=== PATIENT | female | born 1995 | race Two or more races ===

== ENCOUNTER 2017-04-26 12:40 | Emergency (ER) | payer SELFPAY ==
[2017-04-26] MEDS ORDERED: DIAZEPAM INJ 10 MG/2 ML DISP.SYRIN IV ONE (13:42)
[2017-04-26] MEDS ORDERED: KETOROLAC TROMETHAMINE INJ/PF 30 MG/1 ML SDV IV ONE (13:42)
--- NOTE | 2017-04-26 13:55 | ER Document Report ---
ED Extremity Problem, Lower - General Chief Complaint: Knee Pain Stated Complaint: RT KNEE PAIN Time Seen by Provider: 04/26/17 13:25 Mode of Arrival: Medic Information source: Patient Notes: 22-year-old female presents to ED via EMS with reports of right knee pain. She states she bent down and her knee locked up and then she fell down. She states this is happened 3 other times but each time she has been able to loosen her muscles up enough to straighten her leg back out but this time she cannot straighten her leg out. She is in tears while I examine her knee. She states the only met the past medical history she has asthma. She states the only time she never injured her knee is when her child she was running to the gym and she landed on both knees. She states it is very painful above and below the back of the knee with some pain to both sides of the knee. I cannot move the knee at all without her screaming in pain. She is not able to move the knee herself. She states there is some tingling in her foot but she does have sensation to her toes her feet she is able to push against resistance with her toes for a very small amount. Pedal pulses are present. I consulted Dr. Padgett due to this history and exam. He has come in and examined the patient also. test will be done first if it is negative she will be given Toradol 10 mg IV and Valium 2 mg IV. Then she will have an x-ray of her needs completed. - HPI Patient complains to provider of: Pain Location: Knee Occurred: Just prior to arrival Where: Home, Indoors Onset/Duration: Sudden Quality of pain: Pressure, Sharp, Throbbing Severity: Moderate Pain Level: 4 Recent injury: No Associated symptoms: Other - Unable to straighten or move her knee Exacerbated by: Movement Relieved by: Rest - Related Data Allergies/Adverse Reactions: No Known Allergies Allergy (Verified 04/26/17 13:41) Past Medical History - General Information source: Patient - Social History Smoking Status: Current Every Day Smoker Cigarette use (# per day): Yes - 1 maybe 2 cigarettes a day Chew tobacco use (# tins/day): No Smoking Education Provided: Yes - 4 minutes Frequency of alcohol use: None Drug Abuse: None Occupation: None Lives with: Spouse/Significant other Family History: CVA, DM. denies: Arthritis, CAD, COPD, Hyperlipidemia, Hypertension, Malignancy, Thyroid Disfunction Patient has suicidal ideation: No Patient has homicidal ideation: No - Past Medical History Cardiac Medical History: Reports: None Pulmonary Medical History: Reports: Hx Asthma EENT Medical History: Reports: None Neurological Medical History: Reports: None Endocrine Medical History: Reports: None Renal/ Medical History: Reports: None Malignancy Medical History: Reports: None GI Medical History: Reports: None Musculoskeltal Medical History: Reports None Skin Medical History: Reports None Psychiatric Medical History: Reports: None Traumatic Medical History: Reports: None Infectious Medical History: Reports: None Surgical Hx: Negative Past Surgical History: Reports: None - Immunizations Immunizations up to date: Yes Hx Diphtheria, Pertussis, Tetanus Vaccination: Yes Review of Systems - Review of Systems Constitutional: No symptoms reported EENT: No symptoms reported Cardiovascular: No symptoms reported Respiratory: No symptoms reported Gastrointestinal: No symptoms reported Genitourinary: No symptoms reported Female Genitourinary: No symptoms reported Musculoskeletal: Joint pain - Severe right knee pain unable to move knee pain behind the knee up the back of the thigh and down the back of the calf Skin: No symptoms reported Hematologic/Lymphatic: No symptoms reported Neurological/Psychological: No symptoms reported -: Yes All other systems reviewed and negative Physical Exam - Vital signs Vitals: Pulse Resp BP Pulse Ox 96 14 107/66 96 04/26/17 12:47 04/26/17 12:47 04/26/17 12:47 04/26/17 12:47 Interpretation: Normal - General General appearance: Appears well, Alert - HEENT Head: Normocephalic, Atraumatic Eyes: Normal Pupils: PERRL - Respiratory Respiratory status: No respiratory distress Chest status: Nontender Breath sounds: Normal Chest palpation: Normal - Cardiovascular Rhythm: Regular Heart sounds: Normal auscultation Murmur: No - Abdominal Inspection: Normal Distension: No distension Bowel sounds: Normal Tenderness: Nontender Organomegaly: No organomegaly - Back Back: Normal, Nontender - Extremities General upper extremity: Normal inspection, Nontender, Normal color, Normal ROM , Normal temperature General lower extremity: Normal temperature. No: Tressa's sign Knee: Tender, Ecchymosis, Pain with ROM, Tender joint line, Unable to bear weight. No: Abrasion, Deformity, Dislocation, Drawer's test instability, Instability, Joint effusion Calf: Ecchymosis - Neurological Neuro grossly intact: Yes Cognition: Normal Orientation: AAOx4 Goldie Coma Scale Eye Opening: Spontaneous Goldie Coma Scale Verbal: Oriented Drumright Coma Scale Motor: Obeys Commands Goldie Coma Scale Total: 15 Speech: Normal Motor strength normal: LUE, RUE, LLE, RLE Sensory: Normal - Psychological Associated symptoms: Normal affect, Normal mood - Skin Skin Temperature: Warm Skin Moisture: Dry Skin Color: Normal Course - Re-evaluation Re-evalutation: 04/26/17 22:07 Dr. Padgett was consulted multiple times during this patient's stay here due to the locked knee on the right side. Patient was treated with Toradol and Valium at first with minimal relief. She was later given morphine. She was x-ray was completed which was negative no acute changes. Patient was informed of the results of the x-ray and when she went to lift her head she got a little dizzy. Patient was treated with a liter of fluids then after she was feeling more able to sit up vital signs were rechecked. Vital signs were stable. Patient was discharged home with instructions to follow-up with orthopedics to have her knee examined. - Vital Signs Vital signs: Temp Pulse Resp BP Pulse Ox 98.9 F 72 15 111/56 L 100 04/26/17 12:50 04/26/17 18:42 04/26/17 18:42 04/26/17 18:42 04/26/17 18:42 - Laboratory Result Diagrams: 04/26/17 13:52 - Diagnostic Test Radiology reviewed: Image reviewed, Reports reviewed Discharge - Discharge Clinical Impression: Knee pain, right Qualifiers: Chronicity: unspecified Qualified Code(s): M25.561 - Pain in right knee Condition: Stable Disposition: HOME, SELF-CARE Additional Instructions: You were seen today for severe pain in your right knee. You stated you were not able to straighten her knee out after you that your knee. You stated this is happened in the past this is the fourth time which her knee has locked up. This is the first time you have had to come to the emergency room for this condition. Benzodiazepines You have been given a benzodiazepine medication. Examples of this type of medicine include Valium, Xanax, Librium, Ativan, and Halcion. Benzodiazepines have many uses. Medications of this type are used for insomnia, anxiety, muscle spasms, seizures, and drug and alcohol withdrawal. You may become very drowsy when you first take the medication. You should not drive or operate machinery while under its effects. Do not combine the medication with alcohol, or with any other medication without talking to your doctor. Do not take if without specific instruction from your glue mounter operator. Some benzodiazepines may have harmful interactions with oral antifungal medicines such as ketoconazole, itraconazole, and nefazodone. If you are taking an antifungal medicine, discuss this with your doctor before taking benzodiazepines. Toradol Injection You have been given an injection of ketorolac tromethamine (Toradol). This is an excellent, safe drug for pain control. It also has potent antiinflammatory action. You should have significant pain relief within about one hour. Toradol is not addicting and is non-sedating. It does not interfere with driving or work. Call or return if you develop itching, hives, shortness of breath, or rash. Pain Medication Injection You have received an injection of a pain medication. You should experience significant pain relief within 45 minutes. This drug is a narcotic - - it will impair your judgement, slow your reaction time and make you sleepy ( as well as relieve your pain). Narcotics also can cause nausea. You should not drive, work with machinery, or perform any task requiring mental alertness until all effects of the medication are gone -- six to eight hours. Do not take any alcohol, or sedatives, and do not take any other medication without checking with your physician. Knee Exercise Program It's important to strengthen the muscles around the knee. This protects the injured area and stabilizes a knee that's been loosened by ligament injury. EARLY - Even when motion of the knee is painful (even when wearing a splint ), you can begin isometric "quads" exercises. While sitting, hold the knee out, and contract the muscles to stiffen it. It shouldn't be straightened all the way -- stiffen it in a slightly-bent position. Lift the leg and draw a "T" with your foot, up to 100 times. When it becomes easy, add a weight on your foot. LATE - When the doctor advises you, you can begin moving the knee against resistance. The front muscles (quadriceps) are most important. While sitting at a [employer], straighten the knee forcefully while pushing a weight up with your ankle. Start with five to 10 pounds. Do 10 to 20 repetitions, increasing the weight as tolerated. Don't use more weight than is comfortable! Over a few weeks, work up to 35 to 50 pounds. Athletes should try to reach 70 to 90 pounds. Intravenous (IV) Fluids As part of your care today, you received intravenous (IV) fluids. IV fluids are administered to patients who are dehydrated or to those who have certain chemical (electrolyte) abnormalities that need correcting. FOLLOW-UP CARE: If you have been referred to a physician for follow-up care, call the physician s office for an appointment as you were instructed or within the next two days. If you experience worsening or a significant change in your symptoms, notify the physician immediately or return to the Emergency Department at any time for re-evaluation. Referrals: RADHA CLARK MD [ACTIVE STAFF] - Follow up as needed
[2017-04-26 14:22] LABS: ALANINE AMINOTRANSFERASE 12 U/L (9-52); ALBUMIN 4.9 g/dL (3.5-5.0); ALKALINE PHOSPHATASE 75 U/L (38-126); ANION GAP 11 (5-19); ASPARTATE AMINO TRANSFERASE 18 U/L (14-36); BILIRUBIN,DIRECT 0.3 mg/dL (0.0-0.4); BLOOD UREA NITROGEN 12 mg/dL (7-20); CALCIUM 9.9 mg/dL (8.4-10.2); CARBON DIOXIDE 26 mmol/L (22-30); CHLORIDE 106 mmol/L (98-107); CREATINE KINASE 48 U/L (30-135); GLUCOSE 104 mg/dL (75-110); SODIUM 142.9 mmol/L (137-145); TOTAL PROTEIN 7.9 g/dL (6.3-8.2)
--- NOTE | 2017-04-26 15:30 | RADIOLOGY REPORT (SQ) ---
EXAM DESCRIPTION: KNEE RIGHT 2 VIEWS COMPLETED DATE/TIME: 04/26/2017 3:21 pm REASON FOR STUDY: pain will not move COMPARISON: None. NUMBER OF VIEWS: Two views. TECHNIQUE: AP and lateral radiographic images acquired of the right knee. LIMITATIONS: None. FINDINGS: MINERALIZATION: Normal. BONES: No acute fracture or dislocation. No worrisome bone lesions. JOINT: No effusion. SOFT TISSUES: No soft tissue swelling. No radio-opaque foreign body. OTHER: No other significant finding. IMPRESSION: NEGATIVE STUDY OF THE RIGHT KNEE. NO RADIOGRAPHIC EVIDENCE OF ACUTE INJURY. TECHNICAL DOCUMENTATION: JOB ID: [id number] [employer]- All Rights Reserved Reading location - IP/workstation name: [email or web address]
[2017-04-26] MEDS ORDERED: MORPHINE SULFATE 10 MG/ML INJ IV ONE (16:05)
[2017-04-26] MEDS ORDERED: NORMAL SALINE 1000 ML 1,000 ML IV ONE (17:37)
[2017-04-26 18:44] VITALS: BP 111/56
== END 2017-04-26 18:42 | disposition home or self-care (01) ==
LOC: ER 12:40
DX: M25.561 Pain in right knee (principal); W18.39XA Other fall on same level, initial encounter; Y92.009 Unspecified place in unspecified non-institutional (private) residence as the place of occurrence of the external cause; R42 Dizziness and giddiness; R20.2 Paresthesia of skin; J45.909 Unspecified asthma, uncomplicated; F17.210 Nicotine dependence, cigarettes, uncomplicated; Z71.6 Tobacco abuse counseling; Z87.828 Personal history of other (healed) physical injury and trauma
CPT/HCPCS: 99406; 99284; 96361; 96374; 96375; 36415; 82550; 84703; 80053; 73560; J3360; J1885; J2270; J7030

== ENCOUNTER → 2018-05-17 | Outpatient (CLI) | payer SELFPAY ==
--- NOTE | 2018-05-17 17:14 | RADIOLOGY REPORT (SQ) ---
EXAM DESCRIPTION: U/S [id number] TRNABD 1GES W/ODOP COMPLETED DATE/TIME: 05/17/2018 4:56 pm REASON FOR STUDY: Z34.01 ENCNTR FOR SUPRVSN OF NORMAL FIRST PREG, FIRST TRIMESTER Z34.01 ENCNTR FOR SUPRVSN OF NORMAL FIRST PREG, FIRST TRIMES COMPARISON: None. TECHNIQUE: Transabdominal static and realtime grayscale images acquired of the pelvis. Additional se lected spectral and color Doppler images recorded. All images stored on PACs. bHCG: Not applicable. CLINICAL DATES: 13 week 6 day. LIMITATIONS: None. FINDINGS: FETUS: Single Living intrauterine . ULTRASOUND EGA: 9 week 3 day. ULTRASOUND SHERITA: 12/17/2018. EFW: Not applicable less than 20 weeks. CRL: 2.2 cm. FHR: 171 beats per minute. SURVEY: No visualized anomalies. AMNIOTIC FLUID: Adequate amount. PLACENTA: Not yet developed due to early gestation. SUBCHORIONIC BLEED: No. SIZE OF BLEED: Not applicable. UTERUS: No masses. No anomalies. CERVICAL LENGTH: 2.3 cm. Closed. RIGHT ADNEXA: Normal ovary with normal vascular flow. No adnexal free fluid. No adnexal masses. LEFT ADNEXA: Normal ovary with normal vascular flow. No adnexal free fluid. No adnexal masses. FREE FLUID: None. OTHER: No other significant finding. IMPRESSION: LIVING INTRAUTERINE . EGA 9 WEEK 3 DAY. Trimester of : First - 0 to 13 weeks. TECHNICAL DOCUMENTATION: JOB ID: [id number] All Rights Reserved Reading location - IP/workstation name: [email or web address]
== END ==
LOC: RAD 16:23
PROVIDERS: ATTEND Midwife
DX: Z34.01 Encounter for supervision of normal first pregnancy, first trimester (principal)
CPT/HCPCS: 76801

== ENCOUNTER 2018-06-28 18:08 | Emergency (ER) | payer MEDICAID ==
--- NOTE | 2018-06-28 19:08 | ER Document Report ---
ED Medical Screen (RME) - General Chief Complaint: Abdominal Pain Stated Complaint: ABDOMINAL PAIN Time Seen by Provider: 06/28/18 19:00 Primary Care Provider: JESSICA SOMMERS CNM [Primary Care Provider] - Follow up as needed Mode of Arrival: Ambulatory Information source: Patient TRAVEL OUTSIDE OF THE [place] IN LAST 30 DAYS: No - HPI Patient complains to provider of: PELVIC PAIN Notes: 06/28/18 19:06 Patient here with complaints of lower abdominal/pelvic pain. Patient is proximate 15 weeks , G1, P0. States that 2 days ago started having some mild pain that was intermittent the pain has become more constant now. No fevers. She has had nausea, but no vomiting or diarrhea. No dysuria hematuria. No rash. Exam No distress, nontoxic-appearing. Lungs clear and equal throughout. Heart sounds normal. Gravid abdomen with mild lower pelvic tenderness to palpation on limited triage abdominal exam. Plan CBC, CMP, RhoGam work-up, quantitative hCG, UA, ultrasound. An initial examination was made on the patient as part of the triage process, and it was determined a more comprehensive evaluation was necessary. Initial labs were ordered and patient was transferred to another provider in the ED who assumed care and finished evaluation and plan. - Related Data Allergies/Adverse Reactions: No Known Allergies Allergy (Verified 04/26/17 13:41) Past Medical History Pulmonary Medical History: Reports: Hx Asthma Renal/ Medical History: Denies: Hx Peritoneal Dialysis - Immunizations Immunizations up to date: Yes Hx Diphtheria, Pertussis, Tetanus Vaccination: Yes Physical Exam - Vital signs Vitals: Temp Pulse Resp BP Pulse Ox 98.1 F 84 18 124/57 L 100 06/28/18 18:16 06/28/18 18:16 06/28/18 18:16 06/28/18 18:16 06/28/18 18:16 Course - Vital Signs Vital signs: Temp Pulse Resp BP Pulse Ox 98.1 F 84 18 124/57 L 100 06/28/18 18:16 06/28/18 18:16 06/28/18 18:16 06/28/18 18:16 06/28/18 18:16 Doctor's Discharge - Discharge Referrals: JESSICA SOMMERS CNM [Primary Care Provider] - Follow up as needed
[2018-06-28 20:20] LABS: ABSOLUTE BASOPHILS # (AUTO) 0.1 10^3/uL (0.0-0.2); ABSOLUTE EOSINOPHILS # (AUTO) 0.2 10^3/uL (0.0-0.6); ABSOLUTE LYMPHOCYTES (AUTO) 1.4 10^3/uL (0.5-4.7); ABSOLUTE MONOCYTES (AUTO) 0.7 10^3/uL (0.1-1.4); ABSOLUTE NEUT (AUTO) 5.7 10^3/uL (1.7-8.2); BASOPHILS % (AUTO) 0.7 % (0-2); EOSINOPHILS % (AUTO) 2.4 % (0-6); HEMATOCRIT 35.6 % (36.0-47.0); LYMPHOCYTES % (AUTO) 17.4 % (13-45); MEAN CORPUSCULAR HEMOGLOBIN 29.9 pg (27.0-33.4); MEAN CORPUSCULAR HGB CONC 33.6 g/dL (32.0-36.0); MEAN CORPUSCULAR VOLUME 89 fl (80-97); MONOCYTES % (AUTO) 9.3 % (3-13); PLATELET COUNT 268 10^3/uL (150-450); RED CELL DISTRIBUTION WIDTH 14.3 % (11.5-14.0); SEGMENTED NEUTROPHILS % (AUTO) 70.2 % (42-78); TOTAL CELLS COUNTED % (AUTO) 100 %; WHITE BLOOD COUNT 8.1 10^3/uL (4.0-10.5)
[2018-06-28 20:24] LABS: APPEARANCE,URINE CLEAR; BILIRUBIN,URINE NEGATIVE (NEGATIVE); COLOR,URINE COLORLESS; GLUCOSE, URINE NEGATIVE (NEGATIVE); KETONES,URINE NEGATIVE (NEGATIVE); LEUKOCYTE ESTERASE,URINE NEGATIVE (NEGATIVE); NITRITE,URINE NEGATIVE (NEGATIVE); PROTEIN,URINE NEGATIVE (NEGATIVE); URINE SPECIFIC GRAVITY 1.003; UROBILINOGEN,URINE NEGATIVE mg/dL (<2.0)
[2018-06-28 20:31] LABS: ALANINE AMINOTRANSFERASE 14 U/L (9-52); ALBUMIN 3.9 g/dL (3.5-5.0); ALKALINE PHOSPHATASE 81 U/L (38-126); ANION GAP 10 (5-19); ASPARTATE AMINO TRANSFERASE 19 U/L (14-36); BILIRUBIN,DIRECT 0.2 mg/dL (0.0-0.4); BILIRUBIN,TOTAL 0.4 mg/dL (0.2-1.3); BLOOD UREA NITROGEN 7 mg/dL (7-20); CALCIUM 9.3 mg/dL (8.4-10.2); CARBON DIOXIDE 25 mmol/L (22-30); CHLORIDE 101 mmol/L (98-107); GLUCOSE 83 mg/dL (75-110); SODIUM 135.8 mmol/L (137-145); TOTAL PROTEIN 6.8 g/dL (6.3-8.2)
[2018-06-28 21:51] LABS: CHLAM PCR NOT DETECTED (NOT DETECT); GON PCR NOT DETECTED (NOT DETECT)
--- NOTE | 2018-06-28 22:37 | RADIOLOGY REPORT (SQ) ---
EXAM DESCRIPTION: US FOLLOW UP COMPLETED DATE/TME: 06/28/2018 19:05 CLINICAL HISTORY: 23 years, Female, PELVIS PAIN COMPARISON: Prior study from 05/17/2018 TECHNIQUE: Transabdominal ultrasound of the pelvis was performed. Color Doppler images were also obtained of the ovaries and placenta. LIMITATIONS: None FINDINGS: Cervix is closed, measuring 2.3 cm in length. A single intrauterine is identified. The placenta is posterior in location. presentation is currently variable. Measurements are as follows: heart rate: 128 bpm Femoral length: 1.49 cm Abdominal circumference: 8.42 cm Biparietal diameter: 2.95 cm Head circumference: 10.95 cm Largest vertical pocket of amniotic fluid: 4.3 cm Estimated gestational age is 15 weeks and 0 days; estimated date of confinement is 12/20/2018 Right ovary measures 2.8 x 1.9 x 2.4 cm in size. It demonstrates normal echogenicity and normal low resistance arterial waveforms as well as venous flow. Left ovary measures 2.9 x 1.6 cm in size. It demonstrates normal echogenicity and normal low resistance arterial waveforms/venous flow as well. IMPRESSION: Single viable intrauterine , as above. No acute findings identified. copyright 2010 [employer]- All Rights Reserved
[2018-06-28] MEDS ORDERED: OXYCODONE-ACETAMINOPHEN 5-325 MG TABLET PO ONE (23:47)
--- NOTE | 2018-06-28 23:51 | ER Document Report ---
ED General - General Chief Complaint: Abdominal Pain Stated Complaint: ABDOMINAL PAIN Time Seen by Provider: 06/28/18 19:00 Primary Care Provider: JESSICA SOMMERS CNM [NO LOCAL MD] - Follow up as needed Mode of Arrival: Ambulatory Information source: Patient, [facility] Records Notes: 23-year-old female G1, P0 at 15 weeks gestation presents with 2 days of abdominal cramping. Patient describes a cramping and is located in the right and left lower quadrant. She describes as intermittent without radiation. Patient has had nausea without associated vomiting. She denies any vaginal bleeding, dysuria, vaginal discharge, fever, chills, recent illness, trauma to the abdomen. Patient has been under the care of [facility]. TRAVEL OUTSIDE OF THE [place] IN LAST 30 DAYS: No - HPI Onset: Other Onset/Duration: Intermittent Quality of pain: Cramping Severity: Mild Associated symptoms: Nausea. denies: Chest pain, Diarrhea, Fever, Vomiting, Shortness of breath, Sweating Exacerbated by: Denies Relieved by: Denies Similar symptoms previously: No Recently seen / treated by doctor: Yes - Related Data Allergies/Adverse Reactions: No Known Allergies Allergy (Verified 04/26/17 13:41) Past Medical History - General Information source: Patient - Social History Smoking Status: Former Smoker Frequency of alcohol use: None Drug Abuse: None Lives with: Family Family History: CVA, DM. denies: Arthritis, CAD, COPD, Hyperlipidemia, Hypertension, Malignancy, Thyroid Disfunction Patient has suicidal ideation: No Patient has homicidal ideation: No Pulmonary Medical History: Reports: Hx Asthma Renal/ Medical History: Denies: Hx Peritoneal Dialysis - Immunizations Immunizations up to date: Yes Hx Diphtheria, Pertussis, Tetanus Vaccination: Yes Review of Systems - Review of Systems Notes: REVIEW OF SYSTEMS: CONSTITUTIONAL : Denies fever, chills, or sweats. Denies recent illness. Denies weight loss, recent hospitalizations. EENT: Denies visual changes, eye pain. Denies sore throat, oral lesions, difficulty swallowing. CARDIOVASCULAR: Denies chest pain. Denies palpitations. Denies lower extremity edema. RESPIRATORY: Denies cough. Denies shortness of breath, wheezing. GASTROINTESTINAL: Denies abdominal distention. Denies vomiting, or diarrhea. Denies blood in vomitus, stools, or per rectum. Denies black, tarry stools. Denies constipation. GENITOURINARY: Denies difficulty urinating, painful urination, frequency, blood in urine, or vaginal discharge. MUSCULOSKELETAL: Denies back or neck pain or stiffness. Denies joint pain or swelling. SKIN: Denies rash, lesions or sores. HEMATOLOGIC : Denies easy bruising or bleeding. LYMPHATIC: Denies swollen glands. NEUROLOGICAL: Denies confusion or altered mental status. Denies loss of consciousness. Denies dizziness or lightheadedness. Denies headache. Denies weakness or paralysis. Denies problems difficulty with ambulation, slurred speech. Denies sensory loss, numbness, or tingling. Denies seizures. PSYCHIATRIC: Denies anxiety or stress. Denies depression, suicidal ideation, or homicidal ideation. Denies visual or auditory hallucinations. Physical Exam - Vital signs Vitals: Temp Pulse Resp BP Pulse Ox 98.1 F 84 18 124/57 L 100 06/28/18 18:16 06/28/18 18:16 06/28/18 18:16 06/28/18 18:16 06/28/18 18:16 - Notes Notes: PHYSICAL EXAMINATION: GENERAL: Well-appearing, well-nourished and in no acute distress. HEAD: Atraumatic, normocephalic. EYES: Pupils equal round and reactive to light, extraocular movements intact, conjunctiva are normal. ENT: Nares patent, oropharynx clear without exudates. Moist mucous membranes. NECK: Normal range of motion, supple without lymphadenopathy LUNGS: Breath sounds clear to auscultation bilaterally and equal. No wheezes rales or rhonchi. HEART: Regular rate and rhythm without murmurs ABDOMEN: Soft, mild tenderness with palpation in the right and left lower quadrant. Nondistended abdomen. No guarding, no rebound. No masses appreciated. Female : deferred Musculoskeletal: Normal range of motion, no pitting or edema. No cyanosis. NEUROLOGICAL: Cranial nerves grossly intact. Normal speech, normal gait. Normal sensory, motor exams PSYCH: Normal mood, normal affect. SKIN: Warm, Dry, normal turgor, no rashes or lesions noted. Course - Re-evaluation Re-evalutation: 06/29/18 18:22 Laboratory 06/28/18 06/28/18 06/28/18 19:56 19:56 19:56 WBC 8.1 RBC 4.00 Hgb 12.0 Hct 35.6 L MCV 89 MCH 29.9 MCHC 33.6 RDW 14.3 H Plt Count 268 Seg Neutrophils % 70.2 Lymphocytes % 17.4 Monocytes % 9.3 Eosinophils % 2.4 Basophils % 0.7 Absolute Neutrophils 5.7 Absolute Lymphocytes 1.4 Absolute Monocytes 0.7 Absolute Eosinophils 0.2 Absolute Basophils 0.1 Sodium 135.8 L Potassium 4.0 Chloride 101 Carbon Dioxide 25 Anion Gap 10 BUN 7 Creatinine 0.40 L Est GFR ( Amer) > 60 Est GFR (Non-Af Amer) > 60 Glucose 83 Calcium 9.3 Total Bilirubin 0.4 Direct Bilirubin 0.2 Neonat Total Bilirubin Not Reportable Neonat Direct Bilirubin Not Reportable Neonat Indirect Bili Not Reportable AST 19 ALT 14 Alkaline Phosphatase 81 Total Protein 6.8 Albumin 3.9 Beta HCG, Quant 01298.00 H Total Beta HCG POSITIVE Urine Color Urine Appearance Urine pH Ur Specific Raymond Urine Protein Urine Glucose (UA) Urine Ketones Urine Blood Urine Nitrite Urine Bilirubin Urine Urobilinogen Ur Leukocyte Esterase Urine WBC (Auto) Urine RBC (Auto) Squamous Epi Cells Auto Urine Mucus (Auto) Urine Ascorbic Acid Chlamydia DNA (PCR) N.gonorrhoeae DNA (PCR) Blood Type O POSITIVE Rhogam Indicated RHOGAM NOT INDICATED 06/28/18 06/28/18 19:56 19:56 WBC RBC Hgb Hct MCV MCH MCHC RDW Plt Count Seg Neutrophils % Lymphocytes % Monocytes % Eosinophils % Basophils % Absolute Neutrophils Absolute Lymphocytes Absolute Monocytes Absolute Eosinophils Absolute Basophils Sodium Potassium Chloride Carbon Dioxide Anion Gap BUN Creatinine Est GFR ( Amer) Est GFR (Non-Af Amer) Glucose Calcium Total Bilirubin Direct Bilirubin Neonat Total Bilirubin Neonat Direct Bilirubin Neonat Indirect Bili AST ALT Alkaline Phosphatase Total Protein Albumin Beta HCG, Quant Total Beta HCG Urine Color COLORLESS Urine Appearance CLEAR Urine pH 7.0 Ur Specific Raymond 1.003 Urine Protein NEGATIVE Urine Glucose (UA) NEGATIVE Urine Ketones NEGATIVE Urine Blood NEGATIVE Urine Nitrite NEGATIVE Urine Bilirubin NEGATIVE Urine Urobilinogen NEGATIVE Ur Leukocyte Esterase NEGATIVE Urine WBC (Auto) 2 Urine RBC (Auto) 0 Squamous Epi Cells Auto 1 Urine Mucus (Auto) RARE Urine Ascorbic Acid NEGATIVE Chlamydia DNA (PCR) NOT DETECTED N.gonorrhoeae DNA (PCR) NOT DETECTED Blood Type Rhogam Indicated Obstetrics Ultrasound 06/28/18 19:05 IMPRESSION: Single viable intrauterine , as above. No acute findings identified. copyright 2010 [employer]- All Rights Reserved Temp Pulse Resp BP Pulse Ox 98.5 F 84 16 110/49 L 98 06/28/18 23:52 06/28/18 23:52 06/28/18 23:52 06/28/18 23:52 06/28/18 23:52 23-year-old female presents with complaint of lower abdominal pain. Vital signs reviewed and within normal limits. Patient does not appear toxic or dehydrated. She has a benign abdominal and pelvic exam. Transvaginal ultrasound was obtained and showed a single viable IUP. Gonorrhea and Chlamydia is just as 19 we will ask as is for home is is for not detected. No evidence of urinary tract infection. Patient did take Tylenol earlier today without relief. She did receive one [place] during her ED course. Patient was provided copies of her ultrasound report and advised to return to the emergency department with worsening pain or vaginal bleeding. Patient was evaluated and treated as appropriate for the patient's presenting symptoms and complaint, with consideration of any critical or life threatening conditions that may be associated with their obtained history and exam as noted above. All results were discussed with patient and... Patient provided the opportunity to ask questions, and express concerns. Patient was educated on treatments based on their presumed diagnosis as noted above. At this time we will discharge the patient with return precautions and follow-up recommendations. Verbal discharge instructions given a the bedside. Medication warnings reviewed. Patient is in agreement with this plan and has verbalized understanding of return precautions. After careful consideration I feel that that patient can be safely discharged from the emergency department, they were advised to followup with a primary care physician in 2-3 days. Dictation on this chart was performed using voice recognition software and may result in unintended grammatical, spelling, syntax or errors. - Vital Signs Vital signs: Temp Pulse Resp BP Pulse Ox 98.5 F 84 16 110/49 L 98 06/28/18 23:52 06/28/18 23:52 06/28/18 23:52 06/28/18 23:52 06/28/18 23:52 - Laboratory Result Diagrams: 06/28/18 19:56 06/28/18 19:56 Laboratory results interpreted by me: 06/28/18 06/28/18 19:56 19:56 Hct 35.6 L RDW 14.3 H Sodium 135.8 L Creatinine 0.40 L Beta HCG, Quant 34801.00 H - Diagnostic Test Radiology reviewed: Image reviewed, Reports reviewed Discharge - Discharge Clinical Impression: Abdominal pain affecting , Round ligament pain Condition: Good Disposition: HOME, SELF-CARE Instructions: Abdominal Pain ([facility]), Observation for Appendicitis ([facility]), Pelvic Pain in ([facility]), Pelvic Pain in and Round Ligament Pain ([facility]) Referrals: JESSICA SOMMERS CNM [NO LOCAL MD] - Follow up as needed
[2018-06-28 23:53] VITALS: BP 110/49
== END 2018-06-29 00:18 | disposition home or self-care (01) ==
LOC: ER 18:08
DX: O26.892 Other specified pregnancy related conditions, second trimester (principal); R10.2 Pelvic and perineal pain; R10.31 Right lower quadrant pain; R10.32 Left lower quadrant pain; R11.0 Nausea; R10.30 Lower abdominal pain, unspecified; R10.9 Unspecified abdominal pain; Z3A.15 15 weeks gestation of pregnancy; Z87.891 Personal history of nicotine dependence
CPT/HCPCS: 36415; 76805; 80053; 81001; 84702; 85025; 86900; 86901; 87491; 87591; 93976; 99284

== ENCOUNTER 2018-10-16 08:00 | Outpatient (CLI) | payer MEDICAID ==
[2018-10-16 08:42] LABS: APPEARANCE,URINE CLEAR; BILIRUBIN,URINE NEGATIVE (NEGATIVE); COLOR,URINE YELLOW; GLUCOSE, URINE NEGATIVE (NEGATIVE); KETONES,URINE NEGATIVE (NEGATIVE); LEUKOCYTE ESTERASE,URINE SMALL (NEGATIVE); NITRITE,URINE NEGATIVE (NEGATIVE); PROTEIN,URINE NEGATIVE (NEGATIVE); UROBILINOGEN,URINE NEGATIVE mg/dL (<2.0)
[2018-10-16 09:07] LABS: URINE AMPHETAMINES SCREEN NEGATIVE; URINE BARBITURATES SCREEN NEGATIVE; URINE BENZODIAZEPINES SCREEN NEGATIVE; URINE COCAINE SCREEN NEGATIVE; URINE MARIJUANA (THC) SCREEN NEGATIVE; URINE METHADONE SCREEN NEGATIVE
[2018-10-16 09:19] LABS: URINE PHENCYCLIDINE SCREEN NEGATIVE
--- NOTE | 2018-10-16 10:36 | RADIOLOGY REPORT (SQ) ---
EXAM DESCRIPTION: U/S OB LIMITED COMPLETED DATE/TIME: 10/16/2018 10:19 am REASON FOR STUDY: cervical length COMPARISON: None. TECHNIQUE: Limited transabdominal grayscale ultrasound for evaluation of specific requested obstetri luis felipe parameters. LIMITATIONS: None. FINDINGS: CERVICAL LENGTH: 2.9 cm. Closed. ANIYAH: 14.6 cm. FHR: 121 beats per minute. PRESENTATION: Cephalic. PLACENTA: Not assessed ANATOMY: Not assessed OTHER: Estimated gestational age is 31 weeks 1 day. IMPRESSION: LIMITED OBSTETRICAL ULTRASOUND WITH MEASURED PARAMETERS DELINEATED ABOVE. Trimester of : Third trimester - 28 weeks to delivery. TECHNICAL DOCUMENTATION: JOB ID: [id number] for; [facility]- All Rights Reserved Reading location - IP/workstation name: [email or web address]
== END 2018-10-16 11:06 | disposition home or self-care (01) ==
LOC: LC 08:00
PROVIDERS: ATTEND Obstetrics & Gynecology
PROC: 4A1HXCZ Monitoring of Products of Conception, Cardiac Rate, External Approach (ICD-10-PCS; principal; 2018-10-16)
DX: Z34.93 Encounter for supervision of normal pregnancy, unspecified, third trimester (principal)
CPT/HCPCS: 76815; 80307; 81001

== ENCOUNTER 2018-11-25 21:46 | Outpatient (CLI) | payer MEDICAID ==
[2018-11-25 22:26] LABS: APPEARANCE,URINE CLEAR; BILIRUBIN,URINE NEGATIVE (NEGATIVE); COLOR,URINE YELLOW; GLUCOSE, URINE NEGATIVE (NEGATIVE); KETONES,URINE 20 mg/dL (NEGATIVE); LEUKOCYTE ESTERASE,URINE NEGATIVE (NEGATIVE); NITRITE,URINE NEGATIVE (NEGATIVE); PROTEIN,URINE NEGATIVE (NEGATIVE); UROBILINOGEN,URINE NEGATIVE mg/dL (<2.0)
[2018-11-25 22:44] LABS: URINE AMPHETAMINES SCREEN NEGATIVE; URINE BARBITURATES SCREEN NEGATIVE; URINE BENZODIAZEPINES SCREEN NEGATIVE; URINE COCAINE SCREEN NEGATIVE; URINE MARIJUANA (THC) SCREEN NEGATIVE; URINE METHADONE SCREEN NEGATIVE; URINE PHENCYCLIDINE SCREEN NEGATIVE
== END 2018-11-26 | disposition home or self-care (01) ==
LOC: LC 21:46
PROVIDERS: ATTEND Obstetrics & Gynecology
PROC: 4A1HXCZ Monitoring of Products of Conception, Cardiac Rate, External Approach (ICD-10-PCS; principal; 2018-11-25)
DX: O47.03 False labor before 37 completed weeks of gestation, third trimester (principal); Z3A.36 36 weeks gestation of pregnancy
CPT/HCPCS: 59025; 80307; 81001

== ENCOUNTER 2018-12-14 14:53 | Outpatient (CLI) | payer MEDICAID ==
--- NOTE | 2018-12-14 15:06 | Non Stress Test Report ---
Non Stress Test Datetime Report Generated by CPN: 12/14/2018 15:06 DEMOGRAPHIC Test Number: 2 EGA NST: 36.6 EGA NST: 31.1 INDICATION Indication for Study: Ordered by Provider Indication for Study: Other Indication for Study (NST) Other: lc VITAL SIGNS Temperature - NST: 98.1 Pulse - NST: 92 RESP - NST: 16 NBPSYS NST: 105 NBPDIA NST: 64 URINE RESULTS Urine Protein, NST: Negative Urine Ketones - NST: Positive Urine Glucose - NST: Negative Urine Blood - NST: Negative MONITORING Monitor Explained: Monitor Explained; Test Explained; Patient Verbalized Understanding Monitor Explained: Monitor Explained; Test Explained; Patient Verbalized Understanding Time on Monitor: 11/25/2018 22:02 Time on Monitor: 10/16/2018 08:47 Time off Monitor: 11/25/2018 23:45 NST Duration: 103 NST INTERVENTIONS NST Interventions: PO Hydration NST Interventions: PO Hydration; Reposition Patient Physician Notified NST: DrJoselyn Mckeon Physician Notified NST: A Gillespie CNM BABY A: [id number] BABY A Movement : Present Movement : Present Contraction Frequency : irreg FHR Baseline : 130 Accelerations : 15X15 Accelerations : 15X15 Decelerations : None Decelerations : None Variability : Moderate 6-25bpm Variability : Moderate 6-25bpm NST Review: Meets Criteria for Reactive NST NST Review: Meets Criteria for Reactive NST NST Review and Verified By : Sky Dixon RN Results: Reactive NST Results: Reactive NST REPORT Report Trigger: Send Report
[2018-12-14 16:02] LABS: APPEARANCE,URINE CLEAR; BILIRUBIN,URINE NEGATIVE (NEGATIVE); COLOR,URINE YELLOW; GLUCOSE, URINE NEGATIVE (NEGATIVE); KETONES,URINE NEGATIVE (NEGATIVE); LEUKOCYTE ESTERASE,URINE NEGATIVE (NEGATIVE); NITRITE,URINE NEGATIVE (NEGATIVE); PROTEIN,URINE NEGATIVE (NEGATIVE); URINE SPECIFIC GRAVITY 1.006; UROBILINOGEN,URINE NEGATIVE mg/dL (<2.0)
[2018-12-14 16:24] LABS: URINE AMPHETAMINES SCREEN NEGATIVE; URINE BARBITURATES SCREEN NEGATIVE; URINE BENZODIAZEPINES SCREEN NEGATIVE; URINE COCAINE SCREEN NEGATIVE; URINE MARIJUANA (THC) SCREEN NEGATIVE; URINE METHADONE SCREEN NEGATIVE; URINE PHENCYCLIDINE SCREEN NEGATIVE
--- NOTE | 2018-12-14 16:41 | Non Stress Test Report ---
Non Stress Test Datetime Report Generated by CPN: 12/14/2018 16:41 DEMOGRAPHIC EGA NST: 39.4 INDICATION Indication for Study: Other - Please document "Reason for NST Other" in box below. Indication for Study (NST) Other: False labor VITAL SIGNS Temperature - NST: 98.4 Pulse - NST: 115 RESP - NST: 18 NBPSYS NST: 102 NBPDIA NST: 61 MONITORING Monitor Explained: Monitor Explained; Test Explained; Patient Verbalized Understanding; Other Time on Monitor: 12/14/2018 15:30 Time off Monitor: 12/14/2018 16:14 NST Duration: 44 NST INTERVENTIONS NST Interventions: PO Hydration; Reposition Patient Physician Notified NST: P Vela CNM BABY A Movement : Present Contraction Frequency : irregular FHR Baseline : 155 Accelerations : 15X15 Decelerations : None Variability : Moderate 6-25bpm NST Review: Meets Criteria for Reactive NST NST Review and Verified By : MARIO Davis Results: Reactive NST REPORT Report Trigger: Send Report
== END 2018-12-14 16:31 | disposition home or self-care (01) ==
LOC: LC 14:53
PROVIDERS: ATTEND Obstetrics & Gynecology Gynecology
PROC: 4A1HXCZ Monitoring of Products of Conception, Cardiac Rate, External Approach (ICD-10-PCS; principal; 2018-12-14)
DX: O47.1 False labor at or after 37 completed weeks of gestation (principal); Z3A.39 39 weeks gestation of pregnancy
CPT/HCPCS: 80307; 81005

== ENCOUNTER 2018-12-19 16:56 | Outpatient (CLI) | payer MEDICAID ==
[2018-12-19 18:09] LABS: APPEARANCE,URINE CLEAR; BILIRUBIN,URINE NEGATIVE (NEGATIVE); COLOR,URINE YELLOW; GLUCOSE, URINE NEGATIVE (NEGATIVE); KETONES,URINE NEGATIVE (NEGATIVE); LEUKOCYTE ESTERASE,URINE NEGATIVE (NEGATIVE); NITRITE,URINE NEGATIVE (NEGATIVE); PROTEIN,URINE NEGATIVE (NEGATIVE); URINE SPECIFIC GRAVITY 1.016
--- NOTE | 2018-12-19 18:21 | Non Stress Test Report ---
Non Stress Test Datetime Report Generated by CPN: 12/19/2018 18:20 DEMOGRAPHIC EGA NST: 40.2 INDICATION Indication for Study (NST) Other: IUP @ 40.2 MONITORING Monitor Explained: Monitor Explained; Test Explained; Patient Verbalized Understanding Time on Monitor: 12/19/2018 17:15 Time off Monitor: 12/19/2018 17:59 NST Duration: 44 NST INTERVENTIONS NST Interventions: None Physician Notified NST: Dr. Jones BABY A: [id number] BABY A Movement : Present Contraction Frequency : 1-5 FHR Baseline : 145 Accelerations : 15X15 Decelerations : None Variability : Moderate 6-25bpm NST Review: Meets Criteria for Reactive NST NST Review and Verified By : MARIO Davis Results: Reactive NST REPORT Report Trigger: Send Report
[2018-12-19 18:27] LABS: URINE AMPHETAMINES SCREEN NEGATIVE; URINE BARBITURATES SCREEN NEGATIVE; URINE BENZODIAZEPINES SCREEN NEGATIVE; URINE COCAINE SCREEN NEGATIVE; URINE MARIJUANA (THC) SCREEN NEGATIVE; URINE METHADONE SCREEN NEGATIVE; URINE PHENCYCLIDINE SCREEN NEGATIVE
== END 2018-12-19 19:13 | disposition home or self-care (01) ==
LOC: LC 16:56
PROVIDERS: ATTEND Obstetrics & Gynecology Gynecology
PROC: 4A1HXCZ Monitoring of Products of Conception, Cardiac Rate, External Approach (ICD-10-PCS; principal; 2018-12-19)
DX: O48.0 Post-term pregnancy (principal); Z3A.40 40 weeks gestation of pregnancy
CPT/HCPCS: 59025; 80307; 81005

== ENCOUNTER 2018-12-23 08:45 | Inpatient (IN) | payer MEDICAID ==
[2018-12-23] MEDS ORDERED: PENICILLIN G-K 5 MILLION UNIT VIAL ONE ×2 (09:33→12:35)
[2018-12-23 09:35] LABS: APPEARANCE,URINE SLIGHTLY-CLOUDY; BILIRUBIN,URINE NEGATIVE (NEGATIVE); COLOR,URINE YELLOW; GLUCOSE, URINE NEGATIVE (NEGATIVE); KETONES,URINE NEGATIVE (NEGATIVE); LEUKOCYTE ESTERASE,URINE TRACE (NEGATIVE); NITRITE,URINE NEGATIVE (NEGATIVE); PROTEIN,URINE NEGATIVE (NEGATIVE); URINE SPECIFIC GRAVITY 1.014; UROBILINOGEN,URINE NEGATIVE mg/dL (<2.0)
--- NOTE | 2018-12-23 10:08 | Admission Physical ---
Datetime Report Generated by CPN: 12/23/2018 10:08 CURRENT ADMISSION Chief Complaint: Uterine Contractions Indication for Induction: Not Applicable Admit Impression : Term, Intrauterine Admit Impression- Other: early labor; advanced cervical dilatation Admit Plan: Admit to Unit; Initiate Labor Augmentation Protocol ALLERGIES Medication Allergies: No Medication Allergies: No Known Allergies (04/26/2017) Latex: No Latex Allergies Food Allergies: no Environmental Allergies: no OBSTETRICAL HISTORY EDC: 12/17/2018 00:00 : 1 Para: 0 Term: 0 : 0 SAB: 0 IAB: 0 Ectopic: 0 Livin Cesareans: 0 VBACs: 0 Multiple Births: 0 Gestational Diabetes: No Rh Sensitization: No Incompetent Cervix: No SO: No Infertility: No ART Treatment: No Uterine Anomaly: No IUGR: No Hx Previous C/S: No Macrosomia: No Hx Loss/Stillborn: No PIH: No Hx : No Placenta Previa/Abruption: No Depression/PP Depression: No PTL/PROM: No Post Hemorrhage: No Current Procedures: Ultrasound Obstetrical History Comments: g1-current SEE RECORDS Alcohol: No Marijuana : No Cocaine: No Other Illicit Drugs: No Cigarettes: Former Smoker. [id number] MEDICAL HISTORY Diabetes: No Blood Transfusion: No Pulmonary Disease (Asthma, TB): Yes Breast Disease: No Hypertension: No Tool Design Checker Surgery: No Heart Disease: No Hosp/Surgery: No Autoimmune Disorder: No Anesthetic Complications: No Kidney Disease: No Abnormal Pap Smear: No Neuro/Epilepsy: No Psychiatric Disorders: Yes Other Medical Diseases: No Hepatitis/Liver Disease: No Significant Family History: No Varicosities/Phlebitis: No Trauma/Violence : No Thyroid Dysfunction: No Medical History Comments: asthma -Albuterol ( G2nneln, anxiety INFECTIOUS HISTORY Gonorrhea: No Genital Herpes: No Chlamydia: No Tuberculosis: No Syphilis: No Hepatitis: No HIV/AIDS Exposure: No Rash or Viral Illness: No HPV: No PHYSICAL EXAM General: Normal HEENT: Normal Neurologic: Normal Thyroid: Normal Heart: Normal Lungs: Normal Breast: Normal Back: Normal Abdomen: Normal Genitourinary Exam: Normal Extremities: Normal DTRs: Normal Pelvic Type: Adequate Vital Signs: Reviewed; Within Normal Limits VAGINAL EXAM Dilatation: 4-5 Effacement: 70 Station: -2 Contraction Comments: irregular MEMBRANES Membranes: Intact FETUS A EGA: 40.6 Monitoring: External US FHR- Baseline: 150s Variability: Moderate 6-25bpm Accelerations: 15X15 FHR Category: Category I Admit Comment: with an IUP at 40.6 presents to L_D c/o contractions. Her cervix has been dilated at 4 cm for a few weeks. She now has some cervical change. She is yadi irregularly. She reports good movement. She is GBS Pos. No co-morbidities. PLANS FOR LABOR AND DELIVERY Labor and Delivery: None Pain Management: Epidural Feeding Preference: Breast Benefit of Breast Feed Discussed: Yes Circumcision: N/A INFORMED CONSENT Signature: with User ID: [email or web address]
[2018-12-23 10:19] LABS: URINE AMPHETAMINES SCREEN NEGATIVE; URINE BARBITURATES SCREEN NEGATIVE; URINE BENZODIAZEPINES SCREEN NEGATIVE; URINE COCAINE SCREEN NEGATIVE; URINE MARIJUANA (THC) SCREEN NEGATIVE; URINE METHADONE SCREEN NEGATIVE; URINE PHENCYCLIDINE SCREEN NEGATIVE
[2018-12-23] MEDS ORDERED: RINGERS SOLUTION,LACTATED 1,000 ML IV PRN (10:35)
[2018-12-23] MEDS ORDERED: PENICILLIN G POTASSIUM 5,000,000 UNIT in DEXTROSE 5%-WATER 100 ML IV ONE (10:35)
[2018-12-23] MEDS ORDERED: RINGERS SOLUTION,LACTATED 1,000 ML IV ONE (10:35)
[2018-12-23] MEDS ORDERED: BUPIVACAINE HCL 0.25 % INJ/PF (2.5 MG/1 ML) 30 ML VIAL ONE (10:43)
[2018-12-23] MEDS ORDERED: EPHEDRINE SULFATE INJ 50 MG/1 ML AMPULE ONE (10:43)
[2018-12-23] MEDS ORDERED: FENTANYL CITRATE INJ/PF 100 MCG/2 ML AMPUL ONE (10:43)
[2018-12-23] MEDS ORDERED: FENTANYL/BUPIVACAINE/NS/PF 300 MCG/150 ML RTUINJ EPI ONE (10:43)
[2018-12-23] MEDS ORDERED: PHENYLEPHRINE HCL INJ/PF 10 MG/1 ML SDV ONE (10:43)
[2018-12-23] MEDS ORDERED: ONDANSETRON HCL INJ/PF 4 MG/2 ML SDV IV ONE (10:54)
[2018-12-23] MEDS ORDERED: ONDANSETRON HCL INJ/PF 4 MG/2 ML SDV ONE (10:55)
[2018-12-23 11:11] LABS: ABSOLUTE LYMPHOCYTES (AUTO) 0.9 10^3/uL (0.5-4.7); ABSOLUTE MONOCYTES (AUTO) 0.9 10^3/uL (0.1-1.4); ABSOLUTE NEUT (AUTO) 10.5 10^3/uL (1.7-8.2); BASOPHILS % (AUTO) 0.3 % (0-2); EOSINOPHILS % (AUTO) 0.2 % (0-6); HEMATOCRIT 32.6 % (36.0-47.0); HEMOGLOBIN 10.9 g/dL (12.0-15.5); LYMPHOCYTES % (AUTO) 7.4 % (13-45); MEAN CORPUSCULAR HEMOGLOBIN 27.8 pg (27.0-33.4); MEAN CORPUSCULAR HGB CONC 33.4 g/dL (32.0-36.0); MEAN CORPUSCULAR VOLUME 83 fl (80-97); MONOCYTES % (AUTO) 7.5 % (3-13); PLATELET COUNT 232 10^3/uL (150-450); RED BLOOD COUNT 3.91 10^6/uL (3.72-5.28); RED CELL DISTRIBUTION WIDTH 14.8 % (11.5-14.0); SEGMENTED NEUTROPHILS % (AUTO) 84.6 % (42-78); TOTAL CELLS COUNTED % (AUTO) 100 %; WHITE BLOOD COUNT 12.4 10^3/uL (4.0-10.5)
[2018-12-23] MEDS ORDERED: OXYTOCIN/NORMAL SALINE 20 UNIT/1,000 ML RTUINJ IV PRN ×2 (12:29→21:43)
[2018-12-23] MEDS ORDERED: OXYTOCIN/NORMAL SALINE 20 UNIT/1,000 ML RTUINJ ONE (12:34)
[2018-12-23] MEDS ORDERED: MISOPROSTOL 0.2 MG TABLET ONE (12:34)
[2018-12-23] MEDS ORDERED: LIDOCAINE 1% INJ-PF (10 MG/ML) 30 ML SDV ONE (12:34)
[2018-12-23] MEDS ORDERED: PENICILLIN G POTASSIUM 2,500,000 UNIT in DEXTROSE 5%-WATER 50 ML IV SCH (14:36)
[2018-12-23] MEDS ORDERED: DIBUCAINE 1% OINTMENT 56 GM TP PRN (21:43)
[2018-12-23] MEDS ORDERED: BENZOCAINE/MENTHOL AEROSOL SPRAY 56 ML TOP PRN (21:43)
[2018-12-23] MEDS ORDERED: DIPH/PERTUSS(ACELL)/TETANUS VAC/PF 0.5 ML SYR (>=10YO) IM PRN (21:43)
[2018-12-23] MEDS ORDERED: ZOLPIDEM TARTRATE 5 MG TABLET PO PRN (21:43)
[2018-12-23] MEDS ORDERED: ACETAMINOPHEN WITH CODEINE #3 TABLET PO PRN (21:43)
--- NOTE | 2018-12-23 22:29 | Warning Signs in Babies ---
VOD Warning Signs Datetime Report Generated by [facility]: 12/23/2018 22:28 VOD#608 -Warning Signs in Babies: Needs to be viewed. (10/16/2018 08:05:Lea Land RN)
--- NOTE | 2018-12-23 22:30 | Delivery Summary ---
Del Sum A-C Datetime Report Generated by CPN: 12/23/2018 22:29 DELIVERY PERSONNEL DELIVERY PERSONNEL: [id number] Delivery Doctor:: Maggie Herrera MD Labor and Delivery Nurse:: Cassi Wheat RNaoc airspace control officer Nurse:: Alondra Mccloud RN Nursery Nurse:: Alise Rothman RN Nursery Nurse:: Rea Valerio RN Cooperer/TURBO GENERATOR OILER: Colleen Christina, ST MATERNAL INFORMATION Delivery Anesthesia: Epidural Medications After Delivery: Pitocin Bolus-Please Comment Meds After Delivery Comment: 20units in 1000mL NSS Delivery QBL: 300 Provider Comments: VAVD of a viable female at 2101 w/ an OA w/nuchal cord x 1 presentation; APGARS 7, 9; bilateral lat 2nd deg vag and 2nd deg left periurethral lac LABOR SUMMARY EDC: 12/17/2018 00:00 No. Babies in Womb: 1 Attempted: No Labor Anesthesia: Epidural LABOR INFORMATION Reason for Induction: Not Applicable Onset of Labor: 12/23/2018 04:00 Complete Dilatation: 12/23/2018 17:04 Oxytocin: Augmentation Group B Beta Strep: negative Antibiotics # of Doses: 2 Antibiotics Time of Last Dose: 1333 Name of Antibiotic Given: PCN Steroids Given: None Reason Steroids Not Administered: Not Applicable MEMBRANES Membranes Rupture Method: Spontaneous Rupture of Membranes: 12/23/2018 15:52 Length of Rupture (hr): 5.15 Amniotic Fluid Color: Clear Amniotic Fluid Amount: Moderate Amniotic Fluid Odor: Normal STAGES OF LABOR Stage 1 hr: 13 Stage 1 min: 4 Stage 2 hr: 3 Stage 2 min: 57 Stage 3 hr: 0 Stage 3 min: 6 Total Time in Labor hr: 17 Total Time in Labor min: 7 VAGINAL DELIVERY Episiotomy: None Laceration #1: Vaginal; Periurethral Laceration Extension #1: Second Degree Laceration #2: Vaginal Laceration Extension #2: Second Degree Laceration #3: Vaginal Laceration Extension #3: Second Degree Laceration Repair: Yes Laceration Repair Note: 2nd degree left periurethral lac repaired w/ 2-0 chromic; right and left 2nd deg lateral vaginal lacs repaired w/2-0 vicryl Sponge Count Correct: Yes Sharps Count Correct: Yes CSECTION DELIVERY Primary Indication: N/A Secondary Indication: N/A CSection Incidence: N/A Labor: N/A Elective: N/A CSection Incision: N/A BABY A INFORMATION Delivery Date/Time: 12/23/2018 21:01 Method of Delivery: Vaginal Born in Route : No : N/A Forceps: N/A Vacuum Extraction: Successful Shoulder Dystocia : No ASSISTED DELIVERY BABY A Indication for Assisted Delivery: maternal exhaustion Catheter Prior to Procedure: No Station Vacuum/Forcep Apply: +3 Position Vacuum/Forcep Apply: Right Occipital Anterior Vacuum Number of Pulls: 5 Vacuum Number of PopOffs: 0 Vacuum Maximum Pressure Obtained: 500 Reduce Pressure btwn Ctx: Yes Vacuum Cable Engineer Outside Plant: kiwi Total Time Vacuum Applied: 7 minutes PRESENTATION/POSITION BABY A Presentation: Cephalic Cephalic Presentation: Vertex Vertex Position: Occipital Anterior Breech Presentation: N/A PLACENTA INFORMATION BABY A Placenta Delivery Time : 12/23/2018 21:07 Placenta Method of Delivery: Spontaneous Placenta Status: Delivered SCORES BABY A Heart Rate 1 min: >100 bpm Resp Effort 1 min: Slow, Irregular Reflex Irritability 1 min: Cough or Sneeze or Pulls Away Muscle Tone 1 min: Active Motion Color 1 min: Blue/Pale Resuscitation Effort 1 min: Tactile Stimulation SCORE 1 MIN: 7 Heart Rate 5 min: >100 bpm Resp Effort 5 min: Good Cry Reflex Irritability 5 min: Cough or Sneeze or Pulls Away Muscle Tone 5 min: Active Motion Color 5 min: Body Cascade, Extremities Blue Resuscitation Effort 5 min: N/A SCORE 5 MIN: 9 INFORMATION BABY A Gestational Age at Delivery: 40.6 Gestational Status: Full Term- 39- 40.6 Weeks Outcome : Liveborn Condition : Stable Infant Sex: Female IDENTIFICATION BABY A Verification Date/Time: 12/23/2018 21:10 ID Band Number: [id number] Mother's Name Verified: Yes RN Verifying : Nancy Ewing RN Additional Verifying Personnel: Sky Land RN WEIGHT/LENGTH BABY A Infant Birthweight (gm): 3520 Weight (lb): 7 Infant Weight (oz): 12 Infant Length (in): 19.50 Length (cm): 49.53 CORD INFORMATION BABY A No. Cord Vessels: 3 Nuchal Cord : N/A Cord Blood Taken: Yes-For Eval (Mom's Blood Type - or O+) Infant Suction: Mouth ASSESSMENT BABY A Physical Findings at Delivery: Caput Succedaneum Physical Findings- Other: see initial nusery assessment Respirations: Appears Normal Skin to Skin: Yes Intellectual Property Legal Assistant/ALS Called : No Care By: Kendrick Rothman RN Transferred To: Remains with Mother BABY B INFORMATION : N/A SIGNATURES Signature: with User ID: [email or web address]
[2018-12-23] MEDS: IBUPROFEN 800 MG TABLET PO SCH (23:43)
[2018-12-24] MEDS: ACETAMINOPHEN WITH CODEINE #3 TABLET PO PRN ×2 (03:56→11:41)
[2018-12-24] MEDS: IBUPROFEN 800 MG TABLET PO SCH ×3 (05:45→21:22)
[2018-12-24 07:35] LABS: HEMATOCRIT 25.4 % (36.0-47.0); MEAN CORPUSCULAR HEMOGLOBIN 28.1 pg (27.0-33.4); MEAN CORPUSCULAR HGB CONC 33.6 g/dL (32.0-36.0); MEAN CORPUSCULAR VOLUME 84 fl (80-97); PLATELET COUNT 223 10^3/uL (150-450); RED BLOOD COUNT 3.03 10^6/uL (3.72-5.28); RED CELL DISTRIBUTION WIDTH 15.3 % (11.5-14.0); WHITE BLOOD COUNT 13.8 10^3/uL (4.0-10.5)
[2018-12-24 07:36] LABS: HEMOGLOBIN 8.5 g/dL (12.0-15.5)
[2018-12-24] MEDS: FERROUS SULFATE 325 MG TABLET PO SCH ×2 (09:34→18:12)
[2018-12-24] MEDS: SENNOSIDES/DOCUSATE 8.6-50 MG 1 EACH TABLET PO SCH (09:34)
[2018-12-24] MEDS: DOCUSATE SODIUM 100 MG CAPSULE PO SCH ×2 (09:34→18:12)
[2018-12-24] MEDS: PRENATAL VITAMIN W DHA CAPSULE PO SCH (09:35)
--- NOTE | 2018-12-24 12:32 | PDOC PROGRESS REPORT ---
Subjective-OB Progress Note for:: 12/24/18 Physical Exam (OB) Vital Signs: Temp Pulse Resp BP Pulse Ox 98.7 F 115 H 17 115/70 99 12/23/18 23:32 12/23/18 23:32 12/23/18 23:32 12/23/18 23:32 12/23/18 23:32 Intake & Output 12/23/18 12/24/18 12/25/18 06:59 06:59 06:59 Intake Total 500 Balance 500 Weight 67.2 kg - Abdomen Description: Soft Hernia Present: No Fundal Description: Firm, Midline Fundal Height: u/u - u/2 - Abdominal Distension: No distension Tenderness: Nontender - Extremities Lower extremities: Tresas's sign - neg Calf: Normal, Nontender Objective-Diagnostic Laboratory: 12/24/18 07:08 12/23/18 12/24/18 11:01 07:08 WBC 13.8 H RBC 3.03 L Hgb 8.5 L D Hct 25.4 L MCV 84 MCH 28.1 MCHC 33.6 RDW 15.3 H Plt Count 223 Blood Type O POSITIVE Antibody Screen NEGATIVE Assessment and Plan(PN) - Time Spent with Patient Time with patient: Less than 15 minutes Medications reviewed and adjusted accordingly: Yes - Disposition Anticipated Discharge: Home Within: within 24 hours
[2018-12-24] MEDS ORDERED: CALCIUM CARBONATE 500 MG TAB.CHEW PO PRN (18:57)
[2018-12-24] MEDS ORDERED: MAG HYDROX/AL HYDROX/SIMETH SUSP 30 ML UDCUP PO PRN (18:57)
[2018-12-25] MEDS: ACETAMINOPHEN WITH CODEINE #3 TABLET PO PRN (03:03)
[2018-12-25] MEDS: IBUPROFEN 800 MG TABLET PO SCH ×2 (06:12→14:39)
[2018-12-25 09:04] VITALS: BP 114/72
[2018-12-25] MEDS: SENNOSIDES/DOCUSATE 8.6-50 MG 1 EACH TABLET PO SCH (10:17)
[2018-12-25] MEDS: FERROUS SULFATE 325 MG TABLET PO SCH (10:17)
[2018-12-25] MEDS: PRENATAL VITAMIN W DHA CAPSULE PO SCH (10:17)
[2018-12-25] MEDS: DOCUSATE SODIUM 100 MG CAPSULE PO SCH (10:17)
--- NOTE | 2018-12-25 10:41 | PDOC DISCHARGE SUMMARY ---
Impression - Admit/DC Date/PCP Admission Date/Primary Care Provider: 12/23/18 09:26 SHANIQUA BRONSON MD Discharge Date: 12/25/18 - Discharge Diagnosis (1) Obstetrical laceration Is this a current diagnosis for this admission?: Yes (2) Vacuum-assisted vaginal delivery Is this a current diagnosis for this admission?: Yes - Additional Information Resuscitation Status: Full Code Discharge Diet: Regular Discharge Activity: Balance Activity w/Rest, Pelvic Rest Referrals: SHANIQUA BRONSON MD [Primary Care Provider] - Prescriptions: Ibuprofen [Motrin 800 mg Tablet] 800 mg PO Q8HP PRN #60 tablet PRN Reason: Docusate Sodium [Colace 100 mg Capsule] 100 mg PO BID #60 capsule Ferrous Sulfate [Feosol 325 mg Tablet] 325 mg PO BID #60 tablet Home Medications: Vit,Calc76/Iron/Folic [Prenatabs Rx Tablet] 1 tab PO DAILY 10/16/18 Albuterol Sulfate [Proair HFA Inhalation Aerosol 8.5 gm MDI] 1 puff IH Q4 PRN 12/14/18 Docusate Sodium [Colace 100 mg Capsule] 100 mg PO BID #60 capsule 12/25/18 Ferrous Sulfate [Feosol 325 mg Tablet] 325 mg PO BID #60 tablet 12/25/18 Ibuprofen [Motrin 800 mg Tablet] 800 mg PO Q8HP PRN #60 tablet 12/25/18 Results Laboratory Results: WBC 13.8 10^3/uL (4.0-10.5) H 12/24/18 07:08 RBC 3.03 10^6/uL (3.72-5.28) L 12/24/18 07:08 Hgb 8.5 g/dL (12.0-15.5) L D 12/24/18 07:08 Hct 25.4 % (36.0-47.0) L 12/24/18 07:08 MCV 84 fl (80-97) 12/24/18 07:08 MCH 28.1 pg (27.0-33.4) 12/24/18 07:08 MCHC 33.6 g/dL (32.0-36.0) 12/24/18 07:08 RDW 15.3 % (11.5-14.0) H 12/24/18 07:08 Plt Count 223 10^3/uL (150-450) 12/24/18 07:08 Lymph % (Auto) 7.4 % (13-45) L 12/23/18 11:01 [place] % (Auto) 7.5 % (3-13) 12/23/18 11:01 Eos % (Auto) 0.2 % (0-6) 12/23/18 11:01 Baso % (Auto) 0.3 % (0-2) 12/23/18 11:01 Absolute Neuts (auto) 10.5 10^3/uL (1.7-8.2) H 12/23/18 11:01 Absolute Lymphs (auto) 0.9 10^3/uL (0.5-4.7) 12/23/18 11:01 Absolute Monos (auto) 0.9 10^3/uL (0.1-1.4) 12/23/18 11:01 Absolute Eos (auto) 0.0 10^3/uL (0.0-0.6) 12/23/18 11:01 Absolute Basos (auto) 0.0 10^3/uL (0.0-0.2) 12/23/18 11:01 Seg Neutrophils % 84.6 % (42-78) H 12/23/18 11:01 Urine Color YELLOW 12/23/18 08:51 Urine Appearance SLIGHTLY-CLOUDY 12/23/18 08:51 Urine pH 6.0 (5.0-9.0) 12/23/18 08:51 Ur Specific [place] 1.014 12/23/18 08:51 Urine Protein NEGATIVE mg/dL (NEGATIVE) 12/23/18 08:51 Urine Glucose (UA) NEGATIVE mg/dL (NEGATIVE) 12/23/18 08:51 Urine Ketones NEGATIVE mg/dL (NEGATIVE) 12/23/18 08:51 Urine Blood MODERATE (NEGATIVE) H 12/23/18 08:51 Urine Nitrite NEGATIVE (NEGATIVE) 12/23/18 08:51 Urine Bilirubin NEGATIVE (NEGATIVE) 12/23/18 08:51 Urine Urobilinogen NEGATIVE mg/dL (<2.0) 12/23/18 08:51 Ur Leukocyte Esterase TRACE (NEGATIVE) H 12/23/18 08:51 Urine Ascorbic Acid NEGATIVE (NEGATIVE) 12/23/18 08:51 Urine Opiates Screen NEGATIVE 12/23/18 08:51 Urine Methadone Screen NEGATIVE 12/23/18 08:51 Ur Barbiturates Screen NEGATIVE 12/23/18 08:51 Ur Phencyclidine Scrn NEGATIVE 12/23/18 08:51 Ur Amphetamines Screen NEGATIVE 12/23/18 08:51 U Benzodiazepines Scrn NEGATIVE 12/23/18 08:51 Urine Cocaine Screen NEGATIVE 12/23/18 08:51 U Marijuana (THC) Screen NEGATIVE 12/23/18 08:51 RPR NONREACTIVE (NONREACTIVE) 12/23/18 11:01 Blood Type O POSITIVE 12/23/18 11:01 Antibody Screen NEGATIVE 12/23/18 11:01
== END 2018-12-25 14:30 | disposition home or self-care (01) | DRG 806 ==
LOC: LC 08:45 → LR 09:26 → 2S 23:24
PROVIDERS: ADMIT Obstetrics & Gynecology; ATTEND Obstetrics & Gynecology
PROC: 10D07Z6 Extraction of Products of Conception, Vacuum, Via Natural or Artificial Opening (ICD-10-PCS; principal; 2018-12-23)
PROC: 0KQM0ZZ Repair Perineum Muscle, Open Approach (ICD-10-PCS; 2018-12-23)
PROC: 0UQMXZZ Repair Vulva, External Approach (ICD-10-PCS; 2018-12-23)
DX: O60.23X0 Term delivery with preterm labor, third trimester, not applicable or unspecified (principal); O71.4 Obstetric high vaginal laceration alone; Z37.0 Single live birth; J45.909 Unspecified asthma, uncomplicated; O69.81X0 Labor and delivery complicated by cord around neck, without compression, not applicable or unspecified; O75.81 Maternal exhaustion complicating labor and delivery; O99.824 Streptococcus B carrier state complicating childbirth; O71.82 Other specified trauma to perineum and vulva; Z3A.40 40 weeks gestation of pregnancy; Z87.891 Personal history of nicotine dependence
CPT/HCPCS: 36415; 80307; 81005; 85025; 85027; 86592; 86850; 86900; 86901; J2370; J2405; J2540; J2590; J3010; J3490